=== PATIENT | female | born 1995 | race African-American/Black ===

== ENCOUNTER 2020-05-08 12:55 | Emergency (ER) | payer MEDICAID, OTHER ==
[~2020-05-08] VITALS: Ht 152.4 cm; Wt 113.6 kg
[~2020-05-08 12:55] MED LIST: NAPR-677 PO
[2020-05-08] MEDS ORDERED: NEOMY/BACITR/POLYMYXIN OINT PACKET. TP ONE (13:15)
--- NOTE | 2020-05-08 13:50 | RAD ---
EXAM: 3 views of the right foot and ankle are obtained. HISTORY: Trauma. COMPARISON: None. FINDINGS: 3 views of the left foot and ankle are obtained. There is a mildly displaced comminuted fracture involving the base of the second metatarsal. There may also be small avulsion fracture fragments from the base of the first metatarsal and from the intermediate and lateral cuneiforms and cuboid, the latter of which is only seen on a single projection. There is dorsal forefoot and lateral ankle soft tissue swelling. The ankle mortise is intact. No osteochondral lesion is seen. IMPRESSION: Displaced and comminuted Lisfranc fracture-dislocation involving the base of the second metatarsal and possible small avulsion fractures involving the base of the first metatarsal and from the intermediate and lateral cuneiforms and cuboid, the latter of which is only seen on a single projection. This can be better assessed with a CT or MRI. There is associated foot and lateral ankle soft tissue swelling. Electronically signed by: Lori Urbina MD (05/08/2020 1:47 PM) [facility]
--- NOTE | 2020-05-08 13:56 | PHYS DOC ---
Past Medical History Past Medical History: No Pertinent History, Other Past Surgical History: , Other Smoking Status: Current Every Day Smoker Alcohol Use: Heavy Drug Use: None General Adult EDM: Chief Complaint: ANKLE PROBLEM HPI: HPI: Patient is a 24 year old [f__sex] who presents with [] Review of Systems: Review of Systems: Constitutional: Denies fever or chills. [] Eyes: Denies change in visual acuity. [] HENT: Denies nasal congestion or sore throat. [] Respiratory: Denies cough or shortness of breath. [] Cardiovascular: Denies chest pain or edema. [] GI: Denies abdominal pain, nausea, vomiting, bloody stools or diarrhea. [] : Denies dysuria. [] Musculoskeletal: Denies back pain or joint pain. [] Integument: Denies rash. [] Neurologic: Denies headache, focal weakness or sensory changes. [] Endocrine: Denies polyuria or polydipsia. [] Lymphatic: Denies swollen glands. [] Psychiatric: Denies depression or anxiety. [] Heart Score: Risk Factors: Risk Factors: DM, Current or recent (<one month) smoker, HTN, HLP, family history of CAD, obesity. Risk Scores: Score 0 - 3: 2.5% MACE over next 6 weeks - Discharge Home Score 4 - 6: 20.3% MACE over next 6 weeks - Admit for Clinical Observation Score 7 - 10: 72.7% MACE over next 6 weeks - Early Invasive Strategies Current Medications: Current Medications Medications (Trade) Dose Ordered Sig/Marlon Start Time Stop Time Status Last Admin Dose Admin Neomycin/ Polymyxin/ Bacitracin (Triple Antibiotic Ointment) 1 pkt 1X ONCE 05/08/20 13:15 05/08/20 13:16 DC 05/08/20 13:41 1 PKT Allergies: Allergies: Allergies Coded Allergies Type Severity Reaction Last Updated Verified No Known Drug Allergies 07/05/14 No Physical Exam: PE: Constitutional: Well developed, well nourished, no acute distress, non-toxic appearance. [] HENT: Normocephalic, atraumatic, bilateral external ears normal, oropharynx moist, no oral exudates, nose normal. [] Eyes: PERRLA, EOMI, conjunctiva normal, no discharge. [] Neck: Normal range of motion, no tenderness, supple, no stridor. [] Cardiovascular:Heart rate regular rhythm, no murmur [] Lungs & Thorax: Bilateral breath sounds clear to auscultation [] Abdomen: Bowel sounds normal, soft, no tenderness, no masses, no pulsatile masses. [] Skin: Warm, dry, no erythema, no rash. [] Back: No tenderness, no CVA tenderness. [] Extremities: No tenderness, no cyanosis, no clubbing, ROM intact, no edema. [] Neurologic: Alert and oriented X 3, normal motor function, normal sensory function, no focal deficits noted. [] Psychologic: Affect normal, judgement normal, mood normal. [] Current Patient Data: Vital Signs: Vital Signs Date Time Temp Pulse Resp B/P (MAP) Pulse Ox O2 Delivery O2 Flow Rate FiO2 05/08/20 13:04 99.4 95 14 138/73 (94) 96 Room Air 99.4 EKG: EKG: [] Radiology/Procedures: Radiology/Procedures: PROCEDURE: FOOT RIGHT 3V EXAM: 3 views of the right foot and ankle are obtained. HISTORY: Trauma. COMPARISON: None. FINDINGS: 3 views of the left foot and ankle are obtained. There is a mildly displaced comminuted fracture involving the base of the second metatarsal. There may also be small avulsion fracture fragments from the base of the first metatarsal and from the intermediate and lateral cuneiforms and cuboid, the latter of which is only seen on a single projection. There is dorsal forefoot and lateral ankle soft tissue swelling. The ankle mortise is intact. No osteochondral lesion is seen. IMPRESSION: Displaced and comminuted Lisfranc fracture-dislocation involving the base of the second metatarsal and possible small avulsion fractures involving the base of the first metatarsal and from the intermediate and lateral cuneiforms and cuboid, the latter of which is only seen on a single projection. This can be better assessed with a CT or MRI. There is associated foot and lateral ankle soft tissue swelling. Electronically signed by: Lori Urbina MD (05/08/2020 1:47 PM) [facility] Course & Med Decision Making: Course & Med Decision Making Pertinent Labs and Imaging studies reviewed. (See chart for details) [] Dragon Disclaimer: Dragon Disclaimer: This electronic medical record was generated, in whole or in part, using a voice recognition dictation system. Departure Departure Impression: Primary Impression: Lisfranc fracture Additional Impressions: Right ankle sprain Qualified Codes: S93.401A - Sprain of unspecified ligament of right ankle, initial encounter Splinter Disposition: HOME, SELF-CARE Condition: STABLE Referrals: NO PCP (PCP) Patient Instructions: Ankle Sprain, [id number], Crutch Use, [id number], Lisfranc's Fracture-Dislocation and Mid-Foot Sprain with Rehab-[facility], [facility] Hydrocodone/Apap 5-325 (NORCO 5-325 TABLET) 1 Each Tablet 0.5-1 TAB PO PRN Q6HRS PRN for PAIN, #10 TAB 0 Refills Prov: ARASH GARCIA DO 05/08/20 Justicifation of Admission Dx: Justifications for Admission: Justification of Admission Dx: N/A ARASH GARCIA DO May 08, 2020 13:56
[2020-05-08] MEDS ORDERED: HYDR-3164 PO (14:34)
[2020-05-08] MEDS ORDERED: HYDROcodone/APAP 5/325MG 1 TAB TABLET PO ONE ×2 (14:45→17:45)
[2020-05-08] MEDS ORDERED: fentaNYL PF VIAL 100 MCG/2 ML VIAL IM ONE (14:45)
[2020-05-08 17:12] VITALS: BP 137/74
== END 2020-05-08 17:50 | disposition home or self-care (01) ==
LOC: ER 12:55
DX: S92.811A Other fracture of right foot, initial encounter for closed fracture (principal); S93.401A Sprain of unspecified ligament of right ankle, initial encounter; F17.200 Nicotine dependence, unspecified, uncomplicated; F10.20 Alcohol dependence, uncomplicated; Y90.9 Presence of alcohol in blood, level not specified; W10.8XXA Fall (on) (from) other stairs and steps, initial encounter; Y93.89 Activity, other specified; Y92.89 Other specified places as the place of occurrence of the external cause; Y99.8 Other external cause status
CPT/HCPCS: 73610; 73630; 96372; 99285; J3010

== ENCOUNTER 2020-07-13 05:20 | Emergency (ER) | payer SELFPAY ==
[~2020-07-13 05:20] MED LIST changes: +HYDR-3164 PO
== END 2020-07-13 06:00 | disposition left against medical advice (07) ==
LOC: ER 05:20
DX: S71.111A Laceration without foreign body, right thigh, initial encounter (principal); Y08.89XA Assault by other specified means, initial encounter; Y93.89 Activity, other specified; Y92.89 Other specified places as the place of occurrence of the external cause; Y99.8 Other external cause status; Z53.21 Procedure and treatment not carried out due to patient leaving prior to being seen by health care provider

== ENCOUNTER 2021-02-11 11:43 | Emergency (ER) | payer SELFPAY ==
[~2021-02-11] VITALS: Ht 152.4 cm; Wt 127.3 kg
[2021-02-11 12:48] VITALS: BP 131/57
--- NOTE | 2021-02-11 14:04 | PHYS DOC ---
Past Medical History Past Medical History: No Pertinent History Past Surgical History: , Tubal ligation, Other Additional Past Surgical Histo: foot surgery Smoking Status: Current Every Day Smoker Alcohol Use: None Drug Use: None General Adult EDM: Chief Complaint: LOWER EXT PAIN HPI: HPI: Patient is a 25 year old female patient who presents initially stating her whole body was "locked up" prior to coming to the ED. Patient is not giving me much information. She states she has numbness throughout her entire body. She states she cannot feel her legs bilaterally. On asking patient if she has any history of anxiety which was reported to the nurse, she states she does not have any anxiety and this is not an anxiety issue. As we talked informed patient we will have to evaluate her to make sure she is not having a stroke. I did a physical exam to rule out a strokes in case we need to send her for CT. Inf ormed the FAST exam is negative. Patient is on her cell phone. She also has another cell phone on her buttocks that she is playing music nonstop. Informed patient it would be reasonable to turn off the music so we can have a conversation and help her. She turned off the music at this point upset. Then she states she has lost taste in her mouth. Informed her that is very common with Covid we can test her for Covid. She states she does not want a Covid test because she believes she does not have Covid. Informed patient that is up to her. She stated she would like to be tested for diabetes. She states her feet have been swelling as well as her hands. Informed patient we can do a fingerstick but the hemoglobin A1c test is a fasting exam and not done in the ED. She states she has not had anything to eat or drink for the last 2 days. Informed patient it would be reasonable to report poor appetite but single 0 input for 2 days and she still up on walking and her oral mucosa are well- hydrated it is not possible. She had also been reported previously that she feels like she can pee her pants whenever she steps outside. Reminded her if she has the sensation to pee on herself she could have a UTI and also diabetes fee like . Reminded her if she was feeling like she can pee on herself she is likely hydrated and she is drinking some fluids to enable her to have some urine. At this point she stated she needs to go see her own PCP. Inquired where her PCP is located she stated she does not know maybe she will see her mother's doctor. I asked her if she would like to continue the visiting the ED, she stated she needs to leave. She started cursing, I stepped out. The nurse went to talk to her about being discharged, she started cursing stating" you all white bitches need to burn in hell" she was requested to leave. Anna RN was Intake cordinator she states it took almost 15 minutes to get this patient to state why she is in the ED, the stated she was having a flight of ideas Review of Systems: Review of Systems: Constitutional: Denies fever or chills. [] Eyes: Denies change in visual acuity. [] HENT: Denies nasal congestion or sore throat. [] Respiratory: Denies cough or shortness of breath. [] Cardiovascular: Denies chest pain or edema. [] GI: Denies abdominal pain, nausea, vomiting, bloody stools or diarrhea. [] : Denies dysuria. [] Musculoskeletal: Denies back pain or joint pain. [] Integument: Denies rash. [] Neurologic: Reports paresthesias. Denies headache, focal weakness or sensory changes. [] Endocrine: Reports polyuria Lymphatic: Denies swollen glands. [] Psychiatric: Denies depression or anxiety. [] Heart Score: C/O Chest Pain: N/A Risk Factors: Risk Factors: DM, Current or recent (<one month) smoker, HTN, HLP, family history of CAD, obesity. Risk Scores: Score 0 - 3: 2.5% MACE over next 6 weeks - Discharge Home Score 4 - 6: 20.3% MACE over next 6 weeks - Admit for Clinical Observation Score 7 - 10: 72.7% MACE over next 6 weeks - Early Invasive Strategies Allergies: Allergies: Allergies Coded Allergies Type Severity Reaction Last Updated Verified No Known Drug Allergies 07/05/14 No Physical Exam: PE: Constitutional: Well developed, well nourished, no acute distress, non-toxic appearance. [] HENT: Normocephalic, atraumatic, bilateral external ears normal, oropharynx moist, no oral exudates, nose normal. [] Eyes: PERRLA, EOMI, conjunctiva normal, no discharge. [] Neck: Normal range of motion, no tenderness, supple, no stridor. [] Cardiovascular:Heart rate regular rhythm, no murmur [] Lungs & Thorax: Bilateral breath sounds clear to auscultation [] Abdomen: Bowel sounds normal, soft, no tenderness, no masses, no pulsatile masses. [] Skin: Warm, dry, no erythema, no rash. [] Back: No tenderness, no CVA tenderness. [] Extremities: No tenderness, no cyanosis, no clubbing, ROM intact, no edema. [] Neurologic: Alert and oriented X 3, normal motor function, normal sensory function, no focal deficits noted. Cranial nerves II through XII intact Psychologic: Affect normal, judgement normal, mood normal. [] Current Patient Data: Vital Signs: Vital Signs Date Time Temp Pulse Resp B/P (MAP) Pulse Ox O2 Delivery O2 Flow Rate FiO2 02/11/21 12:48 97.5 98 16 131/57 (81) 99 97.5 EKG: EKG: [] Radiology/Procedures: Radiology/Procedures: [] Course & Med Decision Making: Course & Med Decision Making Pertinent Labs and Imaging studies reviewed. (See chart for details) see HPI Dragon Disclaimer: Dragon Disclaimer: This electronic medical record was generated, in whole or in part, using a voice recognition dictation system. Departure Departure Impression: Primary Impression: Arm paresthesia, right Additional Impressions: Arm paresthesia, left Left leg paresthesias Left hand paresthesia Anxiety Disposition: 07 AMA/ELOPED/LWBS Condition: STABLE Referrals: NO PCP (PCP) TAN NINA APRN Feb 11, 2021 14:04
== END 2021-02-11 13:05 | disposition left against medical advice (07) ==
LOC: ER 11:43
DX: R20.2 Paresthesia of skin (principal); F41.8 Other specified anxiety disorders; F17.200 Nicotine dependence, unspecified, uncomplicated; Z98.890 Other specified postprocedural states; Z98.51 Tubal ligation status
CPT/HCPCS: 99281